=== PATIENT | male | born 1945 ===

== ENCOUNTER → 2018-08-02 | Outpatient (CLI) | payer OTHER ==
[~2018-08-02] MED LIST: ADULT ASPIRIN81 MG; CRESTOR20 MG; FENOFIBRATE145 MG; LANTUS100 U/ML; METOPROLOL SUCC50 MG; PLAVIX75 MG; ZOCOR20 MG
== END | disposition home or self-care (01) ==
LOC: NUCLEAR 10:00
DX: I20.1 Angina pectoris with documented spasm (principal)
CPT/HCPCS: 78452; 93017; A9500; J0153